=== PATIENT | female | born 1990 | race Caucasian/White ===

== ENCOUNTER 2016-09-06 22:20 | Emergency (ER) | payer MEDICAID ==
--- NOTE | ~2016-09-06 | ER ---
PATIENT'S NAME: [facility] AGE: 25 Y [address] ROOM: [place] [address] LOCATION: [facility] ADMIT DATE: 09/06/2016 ER/Outpatient Report DISCHARGE DATE: 09/06/2016 FAMILY PHYSICIAN: Yazan Pandya MD ATTENDING PHYSICIAN: Jelena De Leon Time of Arrival: 2223 hours. Time of Evaluation: 2235 hours. CHIEF COMPLAINT: Headache. HISTORY OF PRESENT ILLNESS: The patient states she woke this morning with a right-sided and posterior headache. She states that she slept most of the day to try and get rid of it without any relief. She did take her Topamax this evening, but it has not helped. She has had chills off and on, but does not feel as though she is running a fever. She denies having cough, sore throat, runny nose, or earaches. States the headache is similar to pain that she has had in the past. ALLERGIES: NO KNOWN ALLERGIES. CURRENT MEDICATIONS: On her chart and reviewed by me. PAST MEDICAL HISTORY: Migraine headaches, kqb-rsvawjf-ncyrpsnpi diabetes, polycystic ovary disease, depression, and GERD. PAST SURGERIES: and knee scope. SOCIAL HISTORY: She smokes half pack per day. Denies use of drugs or alcohol. REVIEW OF SYSTEMS: Negative other than those mentioned in the HPI. PHYSICAL EXAMINATION: VITAL SIGNS: She weighed 117.6 kg, blood pressure was 179/77, pulse of 87, respirations 16, temperature of 98.8, and O2 saturations 96% on room air. GENERAL: She is awake, alert, and oriented x4. SKIN: [place], warm, and dry. PATIENT'S NAME: [facility] AGE: 25 Y [address] ROOM: [place] [address] LOCATION: [facility] ADMIT DATE: 09/06/2016 ER/Outpatient Report DISCHARGE DATE: 09/06/2016 FAMILY PHYSICIAN: Yazan Pandya MD ATTENDING PHYSICIAN: Jelena De Leon RESPIRATIONS: Even and nonlabored. Lung sounds are clear throughout. HEART: Regular rate and rhythm. HEENT: Pupils are equal reactive to light. TMs are clear. Nasal is boggy. Oropharynx is clear. NECK: Supple. No lymphadenopathy. NEURO: The patient walked in with a steady even gait. IMPRESSION: Migraine headache. PLAN: The patient was given Toradol 60 mg IM and Phenergan 50 mg IM. She is to go home, rest, and fluids. Continue her current medications. If symptoms persist or worsen, she should follow up with her primary provider or return to the ER. She verbalized understanding. AFSHIN BEAULIEU APRN FOR MD MONISHA LEON/campos /[id number] d: 09/07/16231 t: 09/11/16 1819, OUTPATIENT REPORT
[~2016-09-06 22:20] MED LIST: AUGMENTIN875 MG PO; BENADRYL25 MG PO; BUSPAR5 MG PO; BUSPIRONE HCL15 MG PO; COMPAZINE10 MG PO; GLUCOPHAGE500 MG PO; KLONOPIN1 MG PO; NAPROSYN500 MG PO; NECON 1-35-281 EACH PO; NEURONTIN300 MG PO; NICODERM/HABITR21 MG TRANS; PROTONIX40 MG PO; PROZAC20 MG PO; ZOLOFT100 MG PO
== END 2016-09-06 22:48 | disposition disaster alternative care site (69) ==
LOC: GMED 22:20
DX: G43.909 Migraine, unspecified, not intractable, without status migrainosus (principal); E11.9 Type 2 diabetes mellitus without complications; F17.210 Nicotine dependence, cigarettes, uncomplicated; K21.9 Gastro-esophageal reflux disease without esophagitis; F32.9 Major depressive disorder, single episode, unspecified; Z79.899 Other long term (current) drug therapy
CPT/HCPCS: J1885; J2550

== ENCOUNTER 2016-09-26 21:26 | Emergency (ER) | payer MEDICAID ==
--- NOTE | ~2016-09-26 | ER ---
PATIENT'S NAME: DONALD LRAA [facility] AGE: 25 Y [address] ROOM: [place] [address] LOCATION: ED ADMIT DATE: 09/26/2016 ER/Outpatient Report DISCHARGE DATE: 09/26/2016 FAMILY PHYSICIAN: Yazan Pandya MD ATTENDING PHYSICIAN: Bo Huang Time of Arrival: 2148 hours. Time of Exam: 2200 hours. CHIEF COMPLAINT: Possible miscarriage. HISTORY OF PRESENT ILLNESS: The patient states last week she did 3 home tests and they were all positive. States she started having vaginal bleeding yesterday, 09/25/2016 and last night, she started having cramping. Today, she is having right lower quadrant crampy constant pain. She states she did go and saw Dr. Pandya today. He did test and said her was negative, but told her she could have been having a miscarriage. He told her if the pain continue to worsen, then she should come in and get evaluated. She states her last menstrual period was 08/20/2016. This would be her 2nd , and she has a child who is 8 years old. She did not have any problems with her first . She states that she is not having any vaginal bleeding at this time, just has the generalized crampy discomfort. ALLERGIES: NO KNOWN ALLERGIES. CURRENT MEDICATIONS: Tylenol. PAST MEDICAL HISTORY: GERD. PAST SURGERIES: , knee surgery, and endoscopy in February of 2016. SOCIAL HISTORY: She reports she smokes 1/4th pack per day and has for the past 12 years. Denies use of drugs or alcohol. REVIEW OF SYSTEMS: All negative other than those mentioned in the HPI. PHYSICAL EXAMINATION: PATIENT'S NAME: DONALD LARA [facility] AGE: 25 Y [address] ROOM: [place], [place] [address] LOCATION: [facility] ADMIT DATE: 09/26/2016 ER/Outpatient Report DISCHARGE DATE: 09/26/2016 FAMILY PHYSICIAN: Yazan Pandya MD ATTENDING PHYSICIAN: Bo Huang VITAL SIGNS: She weighed 118.8 kg. Blood pressure was 126/83, pulse of 86, respirations 16, temperature of 96.9, and O2 saturation is 97% on room air. GENERAL: She is awake, alert, and oriented x4. SKIN: [place], warm, and dry. RESPIRATIONS: Even and nonlabored. Lung sounds are clear throughout. HEART: Regular rate and rhythm. ABDOMEN: Soft, nondistended. Bowel sounds are present. She does not have rebound tenderness. Minimal discomfort with deep palpation. ER COURSE: The patient was given [place] 5/325 x1 tablet. Lab work was drawn. White count was 12, hemoglobin was 12.9 with hematocrit of 38.9. CBC is within normal limits. Her serum HCG was less than 1, negative. The patient reports the [place] did take the edge off the pain. IMPRESSION: Abdominal pain. PLAN: Home, rest, fluids. Tylenol or ibuprofen for discomfort. If symptoms persist or worsen, she should follow up with Dr. Pandya in the next 2-3 days. AFSHIN BEAULIEU APRN FOR MD MONISHA CUTLER/campos /[id number] d: 09/27/16 0344 t: 10/01/16 1002, OUTPATIENT REPORT
[2016-09-26 22:31] LABS: BASOPHIL # 0.1 K/uL (0.0-0.2); BASOPHIL % 0.5 %; EOSINOPHIL # 0.3 K/uL (0.0-0.5); EOSINOPHIL % 2.7 %; HEMATOCRIT 38.9 % (33.0-46.0); HEMOGLOBIN 12.9 g/dL (11.0-15.0); IMMATURE GRANULOCYTE # 0.1 K/uL (0.0-0.3); IMMATURE GRANULOCYTE % 0.4 %; LYMPHOCYTE # 4.2 K/uL (0.8-4.0); LYMPHOCYTE % 34.9 %; MCH 28.8 pg (27.0-34.0); MCHC 33.2 gm/dL (32.0-36.5); MCV 86.8 fl (83.0-98.0); MONOCYTE # 0.9 K/uL (0.0-1.0); MONOCYTE % 7.1 %; MPV 9.6 fl (9.4-12.4); NEUTROPHIL # (ANC) 6.6 K/uL (1.8-7.8); NEUTROPHIL % 54.4 %; NRBC % 0 /100WBC (0-0.00); PLATELET COUNT 325 K/uL (150-450); RBC 4.48 M/uL (3.50-5.00); RDW-CV 13.2 % (11.9-14.6)
[2016-09-26 22:50] LABS: ALBUMIN 3.3 gm/dL (3.5-5.0); ALK PHOS 62 IU/L (33-138); ALT 23 IU/L (12-78); ANION GAP 12.8 (10.0-19.0); AST 18 IU/L (10-40); BLOOD UREA NITROGEN 8 mg/dL (6-24); CALCIUM 8.7 mg/dL (8.5-10.5); CHLORIDE 108 mMol/L (96-110); CO2 26 mMol/L (22-32); CREATININE 0.7 mg/dL (0.5-1.1); ESTIMATED GFR (MDRD EQUATION) > 60; POTASSIUM 3.8 mMol/L (3.7-5.1); SODIUM 143 mMol/L (135-145); TOTAL BILIRUBIN 0.2 mg/dL (0.0-1.5); TOTAL PROTEIN 6.9 g/dL (6.0-8.4)
== END 2016-09-26 23:12 | disposition disaster alternative care site (69) ==
LOC: GMED 21:26
PROVIDERS: Nurse Practitioner Family
DX: R10.9 Unspecified abdominal pain (principal); K21.9 Gastro-esophageal reflux disease without esophagitis; F17.210 Nicotine dependence, cigarettes, uncomplicated

== ENCOUNTER 2017-01-06 22:36 | Emergency (ER) | payer MEDICAID ==
--- NOTE | ~2017-01-06 | ER ---
PATIENT'S NAME: DONALD LARA [facility] AGE: 26 Y [address] ROOM: [place] [address] LOCATION: [facility] ADMIT DATE: 01/06/2017 ER/Outpatient Report DISCHARGE DATE: 01/07/2017 FAMILY PHYSICIAN: Yazan Pandya MD ATTENDING PHYSICIAN: Polina Paniagua Admission date and time documented on the medical record. I saw the patient at 2250 hours. CHIEF COMPLAINT: Left flank pain. HISTORY OF PRESENT ILLNESS: The patient is a 26-year-old female, who comes in with left flank pain that she noticed when she woke up from sleep around 10 o'clock this morning. It has worsened through the day. Pain with bowel movement. Some urinary urgency. No fall or trauma. No recent colds, coughs, flus, fever, chills, or sweats. No headache, eyes, ears, nose, throat, neck, or spine pain. No dizziness, lightheadedness. No chest pain, shortness of breath. No nausea, vomiting, diarrhea, or urinary frequency, dysuria. No joint or muscle swelling, redness, or pain. No skin eruptions or rash. History of anxiety, depression, posttraumatic stress disorder, mood disorder. Does have polycystic ovarian syndrome. Does have onx-smtezcx-cbsnnbtij diabetes mellitus type 2. No neuro changes. HOME MEDICATIONS: None. ALLERGIES: NONE. SOCIAL HISTORY: The patient smokes half a pack of cigarettes per day, nondrinker. SIGNIFICANT PAST MEDICAL HISTORY: Anxiety, depression, posttraumatic stress disorder, mood disorder, gastroesophageal reflux, polycystic ovarian syndrome, headaches, tobacco abuse, ozq-mpopxnl-ylodsunpc diabetes mellitus type 2. REVIEW OF SYSTEMS: All systems reviewed by me are negative with the exception of those discussed in the history of present illness. PHYSICAL EXAMINATION: VITAL SIGNS: Temperature 98.1, pulse 101, respirations 18, O2 saturation on PATIENT'S NAME: DONALD LARA [facility] AGE: 26 Y [address] ROOM: [place] [address] LOCATION: [facility] ADMIT DATE: 01/06/2017 ER/Outpatient Report DISCHARGE DATE: 01/07/2017 FAMILY PHYSICIAN: Yazan Pandya MD ATTENDING PHYSICIAN: Polina Paniagua room air is 97%. HEENT: Negative. LUNGS: Clear. HEART: Regular. ABDOMEN: Soft. Some tenderness in the left flank area. Bowel tones present. No distention. No true guarding or rigidity. No rebound tenderness. No CVA tenderness. EXTREMITIES: Intact. NEUROVASCULAR: Intact. SKIN: Clear. No skin eruptions or rash. LABORATORY DATA AND X-RAYS: Urine showed 0 to 2 whites, rare reds, 10 to 20 epithelial cells, few bacteria per high-powered field. Chemistry was normal. White count was 15,700, hemoglobin was 15.9 with hematocrit 46.0, platelet count was 299,000. CT scan of the abdomen and pelvis with renal stone protocol showed a large left adnexal cystic lesion, measuring 6 x 6 cm. No other abnormalities on scan. Scan was read by Radiology, see dictated transcribed report. IMPRESSION: 1. Left flank pain, etiology uncertain. The patient does have a large 6 x 6 cm left adnexal cyst that might be causing her pain. 2. History of polycystic ovarian syndrome. 3. Tobacco abuse. 4. Lxv-fgyxxus-khpaqqjtv diabetes mellitus type 2. 5. Anxiety and depression with posttraumatic stress disorder and mood disorder. 6. Gastroesophageal reflux. PLAN: The patient was given Toradol 30 mg IV in the emergency room, morphine 4 mg IV in the emergency room, Zofran 4 mg IV in the emergency room. Discharged home. Observation. Activity as tolerated. Fluids and diet as tolerated. Continue present home care. [place] 5/325 as needed for pain. Follow up with personal physician in 3 to 4 days. May need to have an ultrasound and possible laparoscopy. Discussion ensued with the patient concerning my findings and recommendations, she understands. POLINA PANIAGUA MD SDS/modl PATIENT'S NAME: DONALD LARA [facility] AGE: 26 Y [address] ROOM: [place], [place] [address] LOCATION: [facility] ADMIT DATE: 01/06/2017 ER/Outpatient Report DISCHARGE DATE: 01/07/2017 FAMILY PHYSICIAN: Yazan Pandya MD ATTENDING PHYSICIAN: Polina Paniagua /[id number] d: 01/07/17 0444 t: 01/09/17 1829, OUTPATIENT REPORT
[2017-01-06 23:15] LABS: BILIRUBIN URINE NEGATIVE (NEGATIVE); BLOOD URINE 10 /UL (NEGATIVE); COLOR URINE YELLOW (YELLOW); GLUCOSE URINE NEGATIVE (NEGATIVE); KETONE URINE NEGATIVE (NEGATIVE); LEUKOCYTES URINE 25 /UL (NEGATIVE); NITRITE URINE NEGATIVE (NEGATIVE); PROTEIN URINE NEGATIVE (NEGATIVE); SPEC GRAVITY URINE 1.015 (1.003-1.035); TURBIDITY URINE 1+ (CLEAR); UROBILINOGEN URINE NORMAL (NORMAL)
[2017-01-06 23:28] LABS: AMORPHOUS URINE 1+ (NEGATIVE); BACTERIA URINE FEW (NEGATIVE); RBC URINE RARE #/HPF (NEGATIVE); WBC URINE 0-2 #/HPF (NEGATIVE)
[2017-01-06 23:40] LABS: HEMOGLOBIN 15.9 g/dL (11.0-15.0); MCH 29.8 pg (27.0-34.0); MCHC 34.6 gm/dL (32.0-36.5); MCV 86.1 fl (83.0-98.0); MPV 10.2 fl (9.4-12.4); PLATELET COUNT 299 K/uL (150-450); RBC 5.34 M/uL (3.50-5.00); RDW-CV 13.3 % (11.9-14.6); WBC 15.7 K/uL (4.0-11.0)
[2017-01-06 23:56] LABS: ALBUMIN 3.6 gm/dL (3.5-5.0); ANION GAP 10.9 (10.0-19.0); CREATININE 0.9 mg/dL (0.5-1.1); POTASSIUM 3.9 mMol/L (3.7-5.1); TOTAL BILIRUBIN 0.2 mg/dL (0.0-1.5); TOTAL PROTEIN 7.4 g/dL (6.0-8.4)
[2017-01-07 00:32] LABS: ABSOLUTE NEUTROPHIL CT (ANC) 8.6 K/uL (1.8-7.8); BANDED NEUTROPHIL # 0.3 K/uL (0.0-0.1); BANDED NEUTROPHILS % 2 %; LYMPHOCYTE # 5.8 K/uL (0.8-4.0); LYMPHOCYTE % 37 %; MONOCYTE # 0.8 K/uL (0.0-1.0); SEGMENTED NEUTROPHIL # 8.3 K/uL (1.8-7.8); SEGMENTED NEUTROPHIL % 53 %
== END 2017-01-07 01:27 | disposition disaster alternative care site (69) ==
LOC: GMED 22:36
PROVIDERS: Emergency Medicine
DX: R10.9 Unspecified abdominal pain (principal); N85.8 Other specified noninflammatory disorders of uterus; E11.9 Type 2 diabetes mellitus without complications; F41.9 Anxiety disorder, unspecified; F32.9 Major depressive disorder, single episode, unspecified; F43.10 Post-traumatic stress disorder, unspecified; F31.9 Bipolar disorder, unspecified; K21.9 Gastro-esophageal reflux disease without esophagitis; F17.210 Nicotine dependence, cigarettes, uncomplicated; Z86.39 Personal history of other endocrine, nutritional and metabolic disease
CPT/HCPCS: J1885; J2270; J2405